=== PATIENT | male | born 1990 | race Caucasian/White ===

== ENCOUNTER → 2020-09-05 14:10 | Outpatient (BNVA) | payer MEDICARE, MEDICAID, SELFPAY | PROVIDERS: PCP Pediatrics Adolescent Medicine; Visit Provider Nurse Practitioner | DX: J02.9 Acute pharyngitis, unspecified (principal) | CPT/HCPCS: 87071; 87880 ==

== ENCOUNTER 2021-05-09 02:30 | Emergency (ER) | payer MEDICARE, MEDICAID, SELFPAY ==
[2021-05-09 02:52] VITALS: BP 146/84; PULSE 81; RESP 16; TEMP 36.7; O2SAT 96; BMI 56.5
--- NOTE | 2021-05-09 03:09 | W.ED.GENADLT ---
HPI - General Adult General: Chief complaint: General Medical Stated complaint: Posion [place] or Sandrine in Rt Ear and Face Time Seen by Provider: 05/09/21 02:32 Source: patient Mode of arrival: ambulatory Limitations: no limitations History of Present Illness: HPI narrative: Patient has had a rash to the right side of his face and ear states he believes he has poison sandrine. States extreme other treatments been pruritic in nature. Denies any worsening proving factors. Denies any fevers. Denies any medical to hearing. States this is going on for 2 days. Associated symptoms: Reports rash; Deny chest pain, dyspnea, headache(s), nausea or vomiting Review of Systems Const: Denies: fever(s), chills, body aches or change in appetite Eyes: Denies: blurry vision or eye discomfort ENMT: Denies: throat pain or dental pain Card: Denies: chest pain Resp: Denies: dyspnea GI: Denies: abdominal pain, nausea, vomiting or diarrhea : Denies: dysuria Musc: Denies: neck pain or back pain Skin/Breast: Reports: rash Neuro: Denies: headache(s) Psych: Denies: depression Marquez/Lymph: Denies: easy bruising All/Imm: Denies: urticaria PFSH ED PFSH: Social History Smoking and tobacco status: never smoked Physical Exam Const: COMMON NORMALS: no acute distress and patient oriented x3 HENMT: COMMON NORMALS: normocephalic HEAD & SCALP: normocephalic OTHER: Maculopapular rash to right side of face and ear no involvement of ear canal Eye: COMMON NORMALS: conjunctivae normal CONJUNCTIVA: Yes conjunctivae normal Neck/C-Spine: COMMON NORMALS: supple Chest: COMMONS NORMALS: normal inspection of the chest Resp: COMMON NORMALS: normal respiratory effort Cardio: COMMON NORMALS: regular rate RATE: regular rate Extremity: COMMON NORMALS: normal to inspection Neuro: COMMON NORMALS: patient oriented x3 Psych: COMMON NORMALS: mental status grossly normal, Normal thought process present and cooperative THOUGHT PROCESS: Normal thought process present Skin: NARRATIVE SKIN EXAM: Maculopapular rash to right side of face Course Vital Signs: Vital signs: Vital Signs Temperature 98.1 F 05/09/21 02:52 Pulse Rate 81 07/09/21 02:52 Respiratory Rate 16 05/09/21 02:52 Blood Pressure 146/84 05/09/21 02:52 Pulse Oximetry 96 05/09/21 02:52 MDM - General Adult MDM Narrative: Medical decision making narrative: Patient presents with poison sandrine and was given IM steroids and is stable for discharge. He is to follow-up his PCP and return if worsening. Discharge Plan Discharge Patient Disposition: Home Clinical Impression: Contact dermatitis due to poison sandrine Condition: Stable Prescriptions: No Action clarithromycin 500 mg tablet 500 mg PO Q12H 7 Days Qty: 14 RF: 0 Discharge Orders: Discharge ED (Routine); Ordered 05/09/21 Ordered By: Tiburcio Fisher Referrals: Richard Mccrary Jr, MD [Primary Care Provider] - 1-3 days Discharge Diet: Advance as tolerated Discharge Activity: Resume usual activity Patient Instructions: Poison Sandrine (ED) Coding Level of Care Code ED Technical Artist for Angelica Mercedes
[2021-05-09] MEDS: dexamethasone 10 mg/mL INJ IM (03:32)
[2021-05-09] MEDS: triamcinolone 40 mg/mL SDV 80 MG IM (03:32)
[2021-05-09 03:36] VITALS: RESP 16
== END 2021-05-09 03:37 | disposition home or self-care (01) ==
PROVIDERS: Emergency Provider Emergency Medicine; PCP Pediatrics Adolescent Medicine
DX: L23.7 Allergic contact dermatitis due to plants, except food (principal)
CPT/HCPCS: 96372; 99283; J1100; J3301

== ENCOUNTER → 2022-07-09 14:57 | Outpatient (BNVA) | payer MEDICARE, MEDICAID, SELFPAY | PROVIDERS: PCP Pediatrics Adolescent Medicine; Visit Provider Emergency Medicine | DX: Z20.822 Contact with and (suspected) exposure to COVID-19 (principal); J32.9 Chronic sinusitis, unspecified | CPT/HCPCS: 87426 ==

== ENCOUNTER → 2024-04-01 12:27 | Outpatient (BNVA) | payer MEDICARE, MEDICAID, SELFPAY | PROVIDERS: PCP Pediatrics Adolescent Medicine; Visit Provider Emergency Medicine | DX: J02.9 Acute pharyngitis, unspecified (principal) | CPT/HCPCS: 87071; 87880 ==